=== PATIENT | male | born 1990 | race Caucasian/White ===

== ENCOUNTER 2017-04-12 13:56 | Emergency (ER) | payer SELFPAY ==
[~2017-04-12] VITALS: Ht 175.3 cm; Wt 52.2 kg
[2017-04-12 14:07] VITALS: BP 167/113; Ht 175.3 cm; Wt 52.2 kg
== END 2017-04-12 14:50 | disposition left against medical advice (07) ==
LOC: ED 13:56
DX: Z53.21 Procedure and treatment not carried out due to patient leaving prior to being seen by health care provider (principal)